=== PATIENT | male | born 1955 | race Caucasian/White ===

== ENCOUNTER 2016-08-13 05:41 | Emergency (ER) | payer MEDICARE, BC ==
[2016-08-13] MEDS: SODIUM CHLORIDE 0.9% FLUSH 10 ML SOL IV PRN ×2 (05:45→06:01)
[2016-08-13] MEDS ORDERED: METOLAZONE 2.5 MG TAB PO ONE (05:53)
[2016-08-13] MEDS ORDERED: FUROSEMIDE 40 MG SOL IV ONE (05:53)
[2016-08-13] MEDS ORDERED: MORPHINE SULFATE 10 MG/ML SOL IV ONE (05:53)
[2016-08-13] MEDS ORDERED: FUROSEMIDE 40 MG SOL ONE (05:55)
[2016-08-13] MEDS ORDERED: MORPHINE SULFATE 10 MG/ML SOL ONE (05:55)
[2016-08-13] MEDS ORDERED: METOLAZONE 2.5 MG TAB ONE (05:57)
[2016-08-13 06:30] VITALS: TEMP 98.7
[2016-08-13 06:30] LABS: BASOPHILS % (AUTO) 1 % (0-3); EOSINOPHILS % (AUTO) 3 % (0-9); HEMATOCRIT 41 % (39-53); MEAN CORPUSCULAR HGB CONC 36.5 gm/dl (32.0-36.0); MEAN CORPUSCULAR VOLUME 89 fL (80-100); MONOCYTES % (AUTO) 11.7 % (0-12); NEUTROPHILS % (AUTO) 67.2 % (37-80)
[2016-08-13 06:33] LABS: CALCIUM 8.9 mg/dl (8.5-10.1); GLOM FILT RATE 32 mL/min (>60); POTASSIUM 3.5 mMol/L (3.5-5.1); SODIUM 136 mMol/L (136-145)
[2016-08-13] MEDS ORDERED: ALBUTEROL/IPRATROPIUM 1 VIAL SOL INH ONE (06:51)
[2016-08-13] MEDS ORDERED: CLONAZEPAM 0.5 MG TAB PO PRN (06:51)
[2016-08-13] MEDS ORDERED: ALBUTEROL/IPRATROPIUM 1 VIAL SOL ONE (06:56)
[2016-08-13] MEDS ORDERED: CLONAZEPAM 0.5 MG TAB ONE (06:58)
[2016-08-13 07:28] VITALS: BP 116/58; PULSE 53; RESP 26; O2SAT 100
== END 2016-08-13 07:15 | disposition home or self-care (01) | DRG 153 ==
LOC: ED 05:41
DX: J06.9 Acute upper respiratory infection, unspecified (principal); I50.9 Heart failure, unspecified; F41.9 Anxiety disorder, unspecified; I25.2 Old myocardial infarction
CPT/HCPCS: 36415; 71010; 80048; 83880; 84484; 85025; 93005; 99285; J1940; J2270; J7620

== ENCOUNTER 2016-08-21 04:48 | Observation (INO) | payer MEDICARE, BC ==
[2016-08-21] MEDS ORDERED: NITROGLYCERIN 0.4 MG TAB SL PRN (05:05)
[2016-08-21] MEDS ORDERED: SODIUM CHLORIDE 0.9% FLUSH 10 ML SOL IV PRN (05:05)
[2016-08-21] MEDS ORDERED: NITROGLYCERIN 0.4 MG TAB SL ONE (05:17)
[2016-08-21 05:31] LABS: BASOPHILS % (AUTO) 1 % (0-3); EOSINOPHILS % (AUTO) 3 % (0-9); HEMATOCRIT 39 % (39-53); MEAN CORPUSCULAR HGB CONC 36.8 gm/dl (32.0-36.0); MEAN CORPUSCULAR VOLUME 87 fL (80-100); MONOCYTES % (AUTO) 8.2 % (0-12); NEUTROPHILS % (AUTO) 46.8 % (37-80)
[2016-08-21] MEDS ORDERED: LORAZEPAM 0.5 MG TAB PO ONE (05:36)
[2016-08-21] MEDS ORDERED: LORAZEPAM 0.5 MG TAB ONE (05:42)
[2016-08-21 05:44] LABS: ALBUMIN 3.2 gm/dl (3.4-5.0); CALCIUM 8.9 mg/dl (8.5-10.1); POTASSIUM 3.5 mMol/L (3.5-5.1)
[2016-08-21] MEDS ORDERED: ZOLPIDEM TARTRATE 5 MG TAB PO PRN (07:17)
[2016-08-21] MEDS ORDERED: NITROGLYCERIN 0.4 MG TAB SL SCH (07:30)
[2016-08-21] MEDS ORDERED: FUROSEMIDE 40 MG TAB PO SCH (09:00)
[2016-08-21] MEDS: LORAZEPAM 0.5 MG TAB PO PRN ×2 (13:21→19:08)
[2016-08-21] MEDS: ISOSORBIDE DINITRATE 10 MG TAB PO SCH ×3 (16:21→21:43)
[2016-08-21] MEDS: CLOBETASOL PROPIONATE TOP SCH (16:21)
[2016-08-21] MEDS: CARVEDILOL 12.5 MG TAB PO SCH ×2 (16:21→21:42)
[2016-08-21] MEDS: EZETIMIBE 10 MG TAB PO SCH (16:22)
[2016-08-21] MEDS: POTASSIUM CHLORIDE 10 MEQ TER PO SCH ×2 (16:22→21:44)
[2016-08-21] MEDS: PIMECROLIMUS TOP SCH (16:22)
[2016-08-21] MEDS: FUROSEMIDE 20 MG TAB PO SCH (16:22)
[2016-08-21] MEDS: SODIUM CHLORIDE 0.9% FLUSH 10 ML SOL IV SCH (17:53)
[2016-08-21] MEDS ORDERED: LATANOPROST 0.005% SOL EACHEYE SCH (21:00)
[2016-08-21] MEDS ORDERED: SIMVASTATIN 20 MG TAB PO SCH (21:00)
[2016-08-21] MEDS ORDERED: FAMOTIDINE 20 MG TAB PO SCH (21:00)
[2016-08-21] MEDS: ALBUTEROL NEB SOL 2.5MG/3ML 1 VIAL SOL NEB PRN (21:44)
[2016-08-22] MEDS: LORAZEPAM 0.5 MG TAB PO PRN ×2 (01:23→09:50)
[2016-08-22] MEDS: SODIUM CHLORIDE 0.9% FLUSH 10 ML SOL IV SCH ×2 (01:25→09:51)
[2016-08-22 07:21] LABS: CALCIUM 9.1 mg/dl (8.5-10.1); POTASSIUM 3.7 mMol/L (3.5-5.1)
[2016-08-22 07:42] VITALS: BP 131/77; RESP 24; TEMP 97.3
[2016-08-22] MEDS ORDERED: VENLAFAXINE HCL 150 MG CER PO SCH (09:00)
[2016-08-22] MEDS: FUROSEMIDE 20 MG TAB PO SCH (09:50)
[2016-08-22] MEDS: EZETIMIBE 10 MG TAB PO SCH (09:50)
[2016-08-22] MEDS: CARVEDILOL 12.5 MG TAB PO SCH (09:50)
[2016-08-22] MEDS: ISOSORBIDE DINITRATE 10 MG TAB PO SCH (09:50)
[2016-08-22] MEDS: POTASSIUM CHLORIDE 10 MEQ TER PO SCH (09:50)
[2016-08-22] MEDS: PIMECROLIMUS TOP SCH (09:51)
[2016-08-22] MEDS: CLOBETASOL PROPIONATE TOP SCH (09:51)
[2016-08-22] MEDS: ALBUTEROL NEB SOL 2.5MG/3ML 1 VIAL SOL NEB PRN (10:06)
[2016-08-22 10:33] VITALS: PULSE 76; O2SAT 95
== END 2016-08-22 11:00 | disposition home or self-care (01) | DRG 204 ==
LOC: ED 04:48 → ACUTE CARE 07:11 → UNDOADMOB 07:11 → ACUTE CARE 07:40
PROVIDERS: ADMIT Family Medicine; ATTEND Family Medicine
DX: R06.00 Dyspnea, unspecified (principal); F41.9 Anxiety disorder, unspecified; R53.81 Other malaise; R06.02 Shortness of breath
CPT/HCPCS: 36415; 71010; 80048; 80053; 82550; 83880; 84484; 85025; 85378; 85610; 85730; 93005; 93012; 94640; 99219; 99285; J7603

== ENCOUNTER 2016-12-07 13:22 | Inpatient (IN) | payer OTHER, MEDICARE, BC ==
[2016-12-07] MEDS ORDERED: CEFAZOLIN SODIUM 1 GM PDS ONE ×2 (14:04→22:40)
[2016-12-07] MEDS ORDERED: HYDROMORPHONE HCL 2 MG/ML SOL IV ONE (14:10)
[2016-12-07] MEDS ORDERED: HYDROMORPHONE 1 MG/ML SYRINGE IV ONE ×2 (14:11→17:30)
[2016-12-07] MEDS ORDERED: HYDROMORPHONE 1 MG/ML SYRINGE ONE ×2 (14:12→17:37)
[2016-12-07 14:20] LABS: BASOPHILS % (AUTO) 1 % (0-3); EOSINOPHILS % (AUTO) 5 % (0-9); HEMATOCRIT 46 % (39-53); MEAN CORPUSCULAR HGB CONC 36.7 gm/dl (32.0-36.0); MEAN CORPUSCULAR VOLUME 87 fL (80-100); MONOCYTES % (AUTO) 9.1 % (0-12); NEUTROPHILS % (AUTO) 59.7 % (37-80)
[2016-12-07] MEDS: SODIUM CHLORIDE 0.9% FLUSH 10 ML SOL IV PRN ×2 (14:20→23:42)
[2016-12-07] MEDS ORDERED: CEFAZOLIN SODIUM 1 GM PDS 2 GM in SODIUM CHLORIDE 0.9% 100 ML 100 ML IV SCH (14:20)
[2016-12-07 14:28] LABS: CALCIUM 9.9 mg/dl (8.5-10.1); POTASSIUM 3.5 mMol/L (3.5-5.1)
[2016-12-07] MEDS ORDERED: BUPIVACAINE HCL 0.5% MPF 10 ML SOL ONE (14:42)
[2016-12-07] MEDS ORDERED: LIDOCAINE HCL 1% MPF SOL ONE (14:42)
[2016-12-07] MEDS ORDERED: DEXAMETHASONE 20 MG/5 ML (4 MG/ML SOL) ONE (14:59)
[2016-12-07] MEDS ORDERED: ONDANSETRON HCL 4 MG/2 ML SOL ONE (14:59)
[2016-12-07] MEDS ORDERED: PHENYLEPHRINE HYDROCHLORIDE 10 MG/ML SOL ONE (14:59)
[2016-12-07] MEDS ORDERED: METOCLOPRAMIDE HYDROCHLORIDE 5 MG/ML SOL ONE (14:59)
[2016-12-07] MEDS ORDERED: EPHEDRINE SULFATE 50 MG/ML SOL ONE ×3 (14:59→16:50)
[2016-12-07] MEDS ORDERED: MIDAZOLAM 2 MG/2 ML SOL ONE ×2 (15:22→16:18)
[2016-12-07] MEDS ORDERED: LACTATED RINGERS 1,000 ML IV ONE (17:06)
[2016-12-07] MEDS ORDERED: PIMECROLIMUS TP PRN (17:15)
[2016-12-07] MEDS ORDERED: LORAZEPAM 0.5 MG TAB PO PRN (17:15)
[2016-12-07] MEDS ORDERED: ALBUTEROL NEB SOL 2.5MG/3ML 1 VIAL SOL INH PRN (17:15)
[2016-12-07] MEDS ORDERED: LACTATED RINGERS 1,000 ML IV SCH (17:15)
[2016-12-07] MEDS ORDERED: CLOBETASOL PROPIONATE TP PRN (17:15)
[2016-12-07] MEDS ORDERED: KETOROLAC TROMETHAMINE 30 MG/ML SOL IV ONE (17:30)
[2016-12-07] MEDS ORDERED: KETOROLAC TROMETHAMINE 30 MG/ML SOL ONE (17:37)
[2016-12-07] MEDS ORDERED: NITROGLYCERIN 0.4 MG TAB SL PRN (17:38)
[2016-12-07] MEDS: SODIUM CHLORIDE 0.9% FLUSH 10 ML SOL IV SCH ×3 (19:05→23:04)
[2016-12-07] MEDS: APAP/OXYCODONE 325/5 TAB PO PRN ×2 (20:06→22:09)
[2016-12-07] MEDS ORDERED: RANITIDINE HCL 150 MG TAB PO SCH (21:00)
[2016-12-07] MEDS ORDERED: SIMVASTATIN 40 MG PO SCH (21:00)
[2016-12-07] MEDS: LATANOPROST 0.005% SOL EACHEYE SCH (22:08)
[2016-12-07] MEDS: ISOSORBIDE DINITRATE 10 MG TAB PO SCH (22:09)
[2016-12-07] MEDS: CARVEDILOL 12.5 MG TAB PO SCH (22:09)
[2016-12-07] MEDS: POTASSIUM CHLORIDE 10 MEQ TER PO SCH (22:09)
[2016-12-07] MEDS: SIMVASTATIN 20 MG TAB PO SCH (22:10)
[2016-12-07] MEDS: ZOLPIDEM TARTRATE 5 MG TAB PO PRN (22:10)
[2016-12-07] MEDS: EZETIMIBE 10 MG TAB PO SCH (22:10)
[2016-12-07] MEDS ORDERED: SODIUM CHLORIDE 0.9% 100 ML 100 ML IV ONE (22:40)
[2016-12-07] MEDS: CEFAZOLIN SODIUM 1 GM PDS 2 GM in SODIUM CHLORIDE 0.9% 100 ML 100 ML IV SCH (23:02)
[2016-12-08] MEDS: SODIUM CHLORIDE 0.9% FLUSH 10 ML SOL IV SCH ×3 (02:04→21:19)
[2016-12-08] MEDS: APAP/OXYCODONE 325/5 TAB PO PRN ×4 (02:56→21:17)
[2016-12-08] MEDS ORDERED: CEFAZOLIN SODIUM 1 GM PDS ONE (05:32)
[2016-12-08] MEDS ORDERED: SODIUM CHLORIDE 0.9% 100 ML 100 ML IV ONE (05:32)
[2016-12-08] MEDS: CEFAZOLIN SODIUM 1 GM PDS 2 GM in SODIUM CHLORIDE 0.9% 100 ML 100 ML IV SCH (06:07)
[2016-12-08] MEDS: FAMOTIDINE 20 MG TAB PO SCH ×2 (06:15→16:53)
[2016-12-08 07:15] LABS: CALCIUM 9.5 mg/dl (8.5-10.1); POTASSIUM 4.2 mMol/L (3.5-5.1)
[2016-12-08] MEDS: FUROSEMIDE 40 MG TAB PO SCH (09:08)
[2016-12-08] MEDS: CHOLECALCIFEROL 1,000 IU TAB PO SCH (09:08)
[2016-12-08] MEDS: CARVEDILOL 12.5 MG TAB PO SCH ×2 (09:11→21:56)
[2016-12-08] MEDS: POTASSIUM CHLORIDE 10 MEQ TER PO SCH ×2 (09:12→21:56)
[2016-12-08] MEDS: ISOSORBIDE DINITRATE 10 MG TAB PO SCH ×2 (09:12→21:56)
[2016-12-08] MEDS: VENLAFAXINE HCL 150 MG CER PO SCH (11:28)
[2016-12-08] MEDS: VENLAFAXINE HYDROCHLORIDE 75 MG CER PO SCH (11:29)
[2016-12-08] MEDS: LATANOPROST 0.005% SOL EACHEYE SCH (21:56)
[2016-12-08] MEDS: EZETIMIBE 10 MG TAB PO SCH (21:57)
[2016-12-08] MEDS: SIMVASTATIN 20 MG TAB PO SCH (21:57)
[2016-12-08] MEDS: ZOLPIDEM TARTRATE 5 MG TAB PO PRN (22:08)
[2016-12-09] MEDS: APAP/OXYCODONE 325/5 TAB PO PRN ×5 (04:15→20:41)
[2016-12-09] MEDS: SODIUM CHLORIDE 0.9% FLUSH 10 ML SOL IV SCH ×3 (04:26→20:39)
[2016-12-09] MEDS: FAMOTIDINE 20 MG TAB PO SCH ×2 (07:35→16:37)
[2016-12-09] MEDS: CARVEDILOL 12.5 MG TAB PO SCH ×2 (08:14→20:38)
[2016-12-09] MEDS: FUROSEMIDE 40 MG TAB PO SCH (08:14)
[2016-12-09] MEDS: CHOLECALCIFEROL 1,000 IU TAB PO SCH (08:15)
[2016-12-09] MEDS: POTASSIUM CHLORIDE 10 MEQ TER PO SCH ×2 (08:15→20:39)
[2016-12-09] MEDS: VENLAFAXINE HCL 150 MG CER PO SCH (08:16)
[2016-12-09] MEDS: ISOSORBIDE DINITRATE 10 MG TAB PO SCH ×2 (08:17→20:39)
[2016-12-09] MEDS: VENLAFAXINE HYDROCHLORIDE 75 MG CER PO SCH (08:17)
[2016-12-09 20:28] VITALS: TEMP 97.4
[2016-12-09] MEDS: LATANOPROST 0.005% SOL EACHEYE SCH (20:39)
[2016-12-09] MEDS: EZETIMIBE 10 MG TAB PO SCH (20:40)
[2016-12-09] MEDS: SIMVASTATIN 20 MG TAB PO SCH (20:40)
[2016-12-10] MEDS: APAP/OXYCODONE 325/5 TAB PO PRN ×3 (02:00→10:27)
[2016-12-10 06:20] VITALS: BP 96/60; PULSE 55; RESP 20; O2SAT 98
[2016-12-10] MEDS: SODIUM CHLORIDE 0.9% FLUSH 10 ML SOL IV SCH (06:32)
[2016-12-10] MEDS: FAMOTIDINE 20 MG TAB PO SCH (06:51)
[2016-12-10] MEDS: VENLAFAXINE HYDROCHLORIDE 75 MG CER PO SCH (09:24)
[2016-12-10] MEDS: VENLAFAXINE HCL 150 MG CER PO SCH (09:25)
[2016-12-10] MEDS: POTASSIUM CHLORIDE 10 MEQ TER PO SCH (09:25)
[2016-12-10] MEDS: CHOLECALCIFEROL 1,000 IU TAB PO SCH (09:26)
[2016-12-10] MEDS: FUROSEMIDE 40 MG TAB PO SCH (09:26)
[2016-12-10] MEDS: CARVEDILOL 12.5 MG TAB PO SCH (09:27)
[2016-12-10] MEDS: ISOSORBIDE DINITRATE 10 MG TAB PO SCH (09:27)
== END 2016-12-10 11:00 | DRG 563 ==
LOC: ED 13:22 → ACUTE CARE 15:18
PROVIDERS: ADMIT Orthopaedic Surgery; ATTEND Orthopaedic Surgery
PROC: F01ZDZZ Gait and/or Balance Assessment (ICD-10-PCS; principal; 2016-12-08)
PROC: F01ZBZZ Bed Mobility Assessment (ICD-10-PCS; 2016-12-08)
PROC: F01ZCZZ Transfer Assessment (ICD-10-PCS; 2016-12-08)
PROC: F01L5ZZ Range of Motion and Joint Integrity Assessment of Musculoskeletal System - Lower Back / Lower Extremity (ICD-10-PCS; 2016-12-08)
PROC: F01L0ZZ Muscle Performance Assessment of Musculoskeletal System - Lower Back / Lower Extremity (ICD-10-PCS; 2016-12-08)
DX: S82.045A Nondisplaced comminuted fracture of left patella, initial encounter for closed fracture (principal); I50.22 Chronic systolic (congestive) heart failure; N18.3 Chronic kidney disease, stage 3 (moderate); W01.0XXA Fall on same level from slipping, tripping and stumbling without subsequent striking against object, initial encounter; Y92.481 Parking lot as the place of occurrence of the external cause
CPT/HCPCS: 36415; 51798; 73560; 73562; 76000; 80048; 83735; 85025; 93005; 96365; 96374; 99284; 99285; J0690; J1100; J1885; J2250; J2405; J2765; J7603; A6232; A6402; A6446; J1170; J2001; L1830

== ENCOUNTER 2017-01-15 13:46 | Outpatient (CLI) | payer MEDICARE, BC ==
[2016-12-10 06:20] VITALS: O2SAT 98
== END 2017-01-15 13:47 | disposition home or self-care (01) | DRG 561 ==
LOC: RAD 13:46
PROVIDERS: ATTEND Orthopaedic Surgery
DX: S82.042D Displaced comminuted fracture of left patella, subsequent encounter for closed fracture with routine healing (principal)
CPT/HCPCS: 73560

== ENCOUNTER 2017-03-21 07:53 | Day surgery (SDC) | payer MEDICARE, BC ==
[2017-03-21] MEDS ORDERED: PROPOFOL 500 MG/50 ML EMU IV ONE (08:09)
[2017-03-21] MEDS ORDERED: LIDOCAINE HCL 1% MPF SOL ONE (08:09)
[2017-03-21 10:34] VITALS: BP 119/75; PULSE 69; RESP 20; TEMP 97.7; O2SAT 100
== END 2017-03-21 10:55 | disposition home or self-care (01) | DRG 392 ==
LOC: SURG 07:53
PROVIDERS: ATTEND Surgery
DX: R10.30 Lower abdominal pain, unspecified (principal); K57.30 Diverticulosis of large intestine without perforation or abscess without bleeding; R19.4 Change in bowel habit; Z86.010 Personal history of colon polyps
CPT/HCPCS: J2001; J2704

== ENCOUNTER 2017-03-22 14:07 | Outpatient (CLI) | payer MEDICARE, BC ==
[2017-03-21 10:34] VITALS: O2SAT 100
== END 2017-03-22 14:08 | disposition home or self-care (01) | DRG 561 ==
LOC: CONVCARE 14:07
PROVIDERS: ATTEND Orthopaedic Surgery
DX: S82.092D Other fracture of left patella, subsequent encounter for closed fracture with routine healing (principal); Z98.890 Other specified postprocedural states
CPT/HCPCS: 73562

== ENCOUNTER 2017-11-02 09:31 | Outpatient (CLI) | payer MEDICARE, BC, OTHER ==
[2017-03-21 10:34] VITALS: O2SAT 100
== END 2017-11-02 09:32 | disposition home or self-care (01) | DRG 566 ==
LOC: CONVCARE 09:31
PROVIDERS: ATTEND Orthopaedic Surgery
DX: M25.362 Other instability, left knee (principal); S82.042S Displaced comminuted fracture of left patella, sequela; Z98.890 Other specified postprocedural states
CPT/HCPCS: 73560; 73565

== ENCOUNTER 2017-12-18 22:44 | Emergency (ER) | payer MEDICARE, OTHER ==
[2017-12-18 22:54] VITALS: TEMP 96.8
[2017-12-18] MEDS ORDERED: FUROSEMIDE 20mg SOL IV ONE (23:12)
[2017-12-18] MEDS ORDERED: FUROSEMIDE 20mg SOL ONE (23:14)
[2017-12-18] MEDS ORDERED: LORAZEPAM 0.5 MG TAB PO ONE (23:15)
[2017-12-18] MEDS ORDERED: SODIUM CHLORIDE 0.9% FLUSH 10 ML SOL IV PRN (23:20)
[2017-12-18 23:29] LABS: BASOPHILS % (AUTO) 1 % (0-3); EOSINOPHILS % (AUTO) 5 % (0-9); HEMATOCRIT 42 % (39-53); HEMOGLOBIN 14.6 gm/dl (13.5-17.7); LYMPHOCYTES % (AUTO) 28.78 % (10-50); MEAN CORPUSCULAR HEMOGLOBIN 32.3 pg (27.0-32.0); MEAN CORPUSCULAR HGB CONC 35.2 gm/dl (32.0-36.0); MEAN CORPUSCULAR VOLUME 92 fL (80-100); MONOCYTES % (AUTO) 9.5 % (0-12)
[2017-12-18 23:42] VITALS: RESP 18
[2017-12-18 23:49] LABS: ALBUMIN 3.4 gm/dl (3.4-5.0); ALKALINE PHOSPHATASE 97 IU/L (46-116); ALT 30 IU/L (14-63); AST 20 IU/L (15-37); BILIRUBIN,TOTAL 0.6 mg/dl (0.2-1.0); BLOOD UREA NITROGEN 22 mg/dl (7-18); CALCIUM 8.6 mg/dl (8.5-10.1); CHLORIDE 104 mMol/L (98-107); CREATININE 2.19 mg/dl (0.80-1.30); GLUCOSE 86 mg/dl (74-106); POTASSIUM 3.6 mMol/L (3.5-5.1); SODIUM 139 mMol/L (136-145); TOTAL PROTEIN 6.6 gm/dl (6.4-8.2); TROP I < 0.017 ng/ml (0.000-0.056)
[2017-12-19 01:00] VITALS: BP 112/77; PULSE 67; O2SAT 92
== END 2017-12-19 00:23 | disposition home or self-care (01) | DRG 293 ==
LOC: ED 22:44
DX: I50.9 Heart failure, unspecified (principal)
CPT/HCPCS: 80053; 83880; 84484; 85025; 96374; 99284; J1940

== ENCOUNTER 2018-03-10 05:26 | Emergency (ER) | payer BC, MEDICARE, OTHER ==
[2018-03-10 06:02] LABS: BASOPHILS % (AUTO) 1 % (0-3); EOSINOPHILS % (AUTO) 5 % (0-9); HEMATOCRIT 41 % (39-53); HEMOGLOBIN 14.1 gm/dl (13.5-17.7); LYMPHOCYTES % (AUTO) 19.6 % (10-50); MEAN CORPUSCULAR HEMOGLOBIN 31.4 pg (27.0-32.0); MEAN CORPUSCULAR HGB CONC 34.1 gm/dl (32.0-36.0); MEAN CORPUSCULAR VOLUME 92 fL (80-100); MONOCYTES % (AUTO) 8.3 % (0-12); NEUTROPHILS % (AUTO) 66.5 % (37-80)
[2018-03-10 06:20] LABS: BLOOD UREA NITROGEN 21 mg/dl (7-18); CALCIUM 9.3 mg/dl (8.5-10.1); CARBON DIOXIDE 27.3 mEq/L (21-32); CHLORIDE 101 mMol/L (98-107); CREATINE KINASE 136 U/L (39-308); CREATININE 2.17 mg/dl (0.80-1.30); GLUCOSE 95 mg/dl (74-106); SODIUM 136 mMol/L (136-145); TROP I < 0.017 ng/ml (0.000-0.056)
[2018-03-10 06:24] VITALS: TEMP 96.8
[2018-03-10 06:45] LABS: ABG PH 7.42 (7.35-7.45)
[2018-03-10] MEDS ORDERED: AZITHROMYCIN 500 MG PDS IV ONE (07:55)
[2018-03-10] MEDS ORDERED: AZITHROMYCIN 500 MG PDS IV SCH (08:00)
[2018-03-10 11:57] VITALS: O2SAT 99
[2018-03-10 11:58] VITALS: BP 109/74; PULSE 67; RESP 18
== END 2018-03-10 09:22 | disposition home or self-care (01) | DRG 204 ==
LOC: ED 05:26
DX: R06.02 Shortness of breath (principal); I50.9 Heart failure, unspecified; R79.89 Other specified abnormal findings of blood chemistry
CPT/HCPCS: 36415; 36600; 71250; 80048; 82550; 82803; 83880; 84484; 85025; 85378; 93005; 96365; 99284; 99285; J0456

== ENCOUNTER 2018-07-10 15:23 | Inpatient (IN) | payer MEDICARE, BC ==
[2018-07-10] MEDS ORDERED: NITROGLYCERIN 0.4 MG TAB SL PRN ×2 (15:25→17:15)
[2018-07-10] MEDS ORDERED: FUROSEMIDE 20mg SOL IV ONE (16:22)
[2018-07-10] MEDS ORDERED: FUROSEMIDE 20mg SOL ONE (16:31)
[2018-07-10] MEDS: SODIUM CHLORIDE 0.9% FLUSH 10 ML SOL IV PRN ×2 (16:36→20:33)
[2018-07-10] MEDS ORDERED: ZOLPIDEM TARTRATE 5 MG TAB PO PRN (17:15)
[2018-07-10] MEDS ORDERED: CLOBETASOL PROPIONATE TP PRN (17:15)
[2018-07-10] MEDS ORDERED: ALBUTEROL NEB SOL 2.5MG/3ML 1 VIAL SOL INH PRN (17:15)
[2018-07-10 18:33] LABS: INR 0.99 (0.86-1.12)
[2018-07-10 20:23] LABS: BLOOD UREA NITROGEN 17 mg/dl (7-18); CALCIUM 9.5 mg/dl (8.5-10.1); CARBON DIOXIDE 29.7 mEq/L (21-32); CHLORIDE 103 mMol/L (98-107); CREATININE 2.11 mg/dl (0.80-1.30); GLUCOSE 112 mg/dl (74-106); POTASSIUM 3.2 mMol/L (3.5-5.1); SODIUM 140 mMol/L (136-145); TROP I < 0.017 ng/ml (0.000-0.056)
[2018-07-10] MEDS: ATORVASTATIN 10 MG TAB PO SCH (20:30)
[2018-07-10] MEDS: HYDRALAZINE HYDROCHLORIDE 10 MG TAB PO SCH (20:31)
[2018-07-10] MEDS: CARVEDILOL 12.5 MG TAB PO SCH (20:31)
[2018-07-10] MEDS: ALLOPURINOL 100 MG TAB PO SCH (20:32)
[2018-07-10] MEDS: ROPINIROLE HCL 0.5 MG TAB PO SCH (20:32)
[2018-07-10] MEDS: FAMOTIDINE 20 MG TAB PO SCH (20:32)
[2018-07-10] MEDS ORDERED: POTASSIUM CHLORIDE 10 MEQ TER PO ONE (20:41)
[2018-07-10] MEDS ORDERED: LORAZEPAM 0.5 MG TAB PO ONE (22:16)
[2018-07-11 07:28] LABS: CALCIUM 9.5 mg/dl (8.5-10.1); CARBON DIOXIDE 26.7 mEq/L (21-32); CREATININE 2.05 mg/dl (0.80-1.30); POTASSIUM 3.5 mMol/L (3.5-5.1)
[2018-07-11] MEDS: CARVEDILOL 12.5 MG TAB PO SCH ×2 (08:45→21:51)
[2018-07-11] MEDS: HYDRALAZINE HYDROCHLORIDE 10 MG TAB PO SCH ×3 (08:45→21:51)
[2018-07-11] MEDS: FUROSEMIDE 20 MG TAB PO SCH (08:45)
[2018-07-11] MEDS: VENLAFAXINE HYDROCHLORIDE 75 MG CER PO SCH (08:46)
[2018-07-11] MEDS: CHOLECALCIFEROL 1,000 IU TAB PO SCH (08:46)
[2018-07-11] MEDS ORDERED: FUROSEMIDE 40 MG SOL IV SCH (21:00)
[2018-07-11] MEDS ORDERED: POTASSIUM CHLORIDE 10 MEQ TER PO SCH (21:45)
[2018-07-11] MEDS: ATORVASTATIN 10 MG TAB PO SCH (21:51)
[2018-07-11] MEDS: ROPINIROLE HCL 0.5 MG TAB PO SCH (21:52)
[2018-07-11] MEDS: FAMOTIDINE 20 MG TAB PO SCH (21:52)
[2018-07-11] MEDS: ALLOPURINOL 100 MG TAB PO SCH (21:53)
[2018-07-12] MEDS ORDERED: LORAZEPAM 0.5 MG TAB PO ONE (00:12)
[2018-07-12 04:37] VITALS: RESP 18; O2SAT 93
[2018-07-12 07:30] LABS: CALCIUM 9.8 mg/dl (8.5-10.1); CARBON DIOXIDE 27.3 mEq/L (21-32); CREATININE 2.08 mg/dl (0.80-1.30); POTASSIUM 3.6 mMol/L (3.5-5.1)
[2018-07-12 08:39] VITALS: BP 101/64; PULSE 57; TEMP 97.7
[2018-07-12] MEDS: FUROSEMIDE 20 MG TAB PO SCH (08:58)
[2018-07-12] MEDS: CHOLECALCIFEROL 1,000 IU TAB PO SCH (08:59)
[2018-07-12] MEDS: CARVEDILOL 12.5 MG TAB PO SCH (08:59)
[2018-07-12] MEDS: VENLAFAXINE HYDROCHLORIDE 75 MG CER PO SCH (08:59)
[2018-07-12] MEDS: HYDRALAZINE HYDROCHLORIDE 10 MG TAB PO SCH (09:00)
== END 2018-07-12 11:30 | disposition home or self-care (01) | DRG 293 ==
LOC: ED 15:23 → ACUTE CARE 16:44 → UNDOADMIN 16:44 → ACUTE CARE 16:50
PROVIDERS: ADMIT Family Medicine; ATTEND Family Medicine
DX: I50.9 Heart failure, unspecified (principal); Z95.0 Presence of cardiac pacemaker; R06.02 Shortness of breath; N18.3 Chronic kidney disease, stage 3 (moderate)
CPT/HCPCS: 36415; 80048; 83880; 84484; 85610; 85730; 93005; 93012; 94762; 96374; 99284; J1940; J7613; A9270-GY

== ENCOUNTER 2018-11-28 09:51 | Emergency (ER) | payer MEDICARE, OTHER ==
[2018-11-28 10:09] VITALS: TEMP 97.5
[2018-11-28 10:14] LABS: BASOPHILS % (AUTO) 1 % (0-3); EOSINOPHILS % (AUTO) 5 % (0-9); HEMATOCRIT 42 % (39-53); HEMOGLOBIN 14.4 gm/dl (13.5-17.7); LYMPHOCYTES % (AUTO) 26.1 % (10-50); MEAN CORPUSCULAR HEMOGLOBIN 30.8 pg (27.0-32.0); MEAN CORPUSCULAR HGB CONC 34.5 gm/dl (32.0-36.0); MEAN CORPUSCULAR VOLUME 89 fL (80-100); MONOCYTES % (AUTO) 8.3 % (0-12); NEUTROPHILS % (AUTO) 59.1 % (37-80)
[2018-11-28 10:31] LABS: ALBUMIN 3.3 gm/dl (3.4-5.0); ALKALINE PHOSPHATASE 140 IU/L (46-116); ALT 19 IU/L (14-63); AST 19 IU/L (15-37); BILIRUBIN,TOTAL 0.4 mg/dl (0.2-1.0); BLOOD UREA NITROGEN 26 mg/dl (7-18); CALCIUM 9.5 mg/dl (8.5-10.1); CHLORIDE 103 mMol/L (98-107); CREATININE 1.97 mg/dl (0.80-1.30); GLUCOSE 109 mg/dl (74-106); SODIUM 136 mMol/L (136-145); TOTAL PROTEIN 6.6 gm/dl (6.4-8.2); TROP I < 0.017 ng/ml (0.000-0.056)
[2018-11-28 11:21] VITALS: BP 113/73; PULSE 68; RESP 22; O2SAT 94
== END 2018-11-28 11:20 | disposition home or self-care (01) | DRG 204 ==
LOC: ED 09:51
DX: R06.02 Shortness of breath (principal)
CPT/HCPCS: 36415; 71045; 80053; 83880; 84484; 85025; 93005; 99283; 99284

== ENCOUNTER 2018-12-17 09:34 | Outpatient (CLI) | payer MEDICARE, OTHER ==
[2018-11-28 11:21] VITALS: O2SAT 94
[2018-12-17 10:01] LABS: CALCIUM 9.7 mg/dl (8.5-10.1); CARBON DIOXIDE 29.5 mEq/L (21-32); CREATININE 2.23 mg/dl (0.80-1.30)
== END 2018-12-17 09:35 | disposition home or self-care (01) | DRG 293 ==
LOC: CONVCARE 09:34
PROVIDERS: ATTEND Internal Medicine Cardiovascular Disease
DX: I50.9 Heart failure, unspecified (principal); N18.9 Chronic kidney disease, unspecified; G47.33 Obstructive sleep apnea (adult) (pediatric); E78.5 Hyperlipidemia, unspecified; I25.2 Old myocardial infarction; I11.0 Hypertensive heart disease with heart failure
CPT/HCPCS: 36415; 80048

== ENCOUNTER 2019-01-19 21:23 | Observation (INO) | payer MEDICARE, OTHER ==
[2019-01-19] MEDS ORDERED: SODIUM CHLORIDE 0.9% FLUSH 10 ML SOL IV PRN (21:26)
[2019-01-19] MEDS ORDERED: ASPIRIN 81 MG CHEWABLE CTB PO STA (21:26)
[2019-01-19] MEDS ORDERED: ASPIRIN 81 MG CHEWABLE CTB ONE (21:32)
[2019-01-19] MEDS ORDERED: NITROGLYCERIN 0.4 MG TAB SL ONE (21:33)
[2019-01-19] MEDS: NITROGLYCERIN 0.4 MG TAB SL PRN ×3 (21:38→21:53)
[2019-01-19 21:42] LABS: BASOPHILS % (AUTO) 1 % (0-3); EOSINOPHILS % (AUTO) 6 % (0-9); HEMATOCRIT 44 % (39-53); HEMOGLOBIN 14.8 gm/dl (13.5-17.7); LYMPHOCYTES % (AUTO) 28.1 % (10-50); MEAN CORPUSCULAR HEMOGLOBIN 30.6 pg (27.0-32.0); MEAN CORPUSCULAR HGB CONC 33.3 gm/dl (32.0-36.0); MEAN CORPUSCULAR VOLUME 92 fL (80-100); MONOCYTES % (AUTO) 12.3 % (0-12); NEUTROPHILS % (AUTO) 52.6 % (37-80)
[2019-01-19 21:52] LABS: INR 1.05 (0.87-1.13)
[2019-01-19 21:57] LABS: BLOOD UREA NITROGEN 30 mg/dl (7-18); CALCIUM 9.3 mg/dl (8.5-10.1); CARBON DIOXIDE 29.5 mEq/L (21-32); CHLORIDE 100 mMol/L (98-107); CREATINE KINASE 79 U/L (39-308); CREATININE 2.26 mg/dl (0.80-1.30); GLUCOSE 109 mg/dl (74-106); TROP I < 0.017 ng/ml (0.000-0.056)
[2019-01-19] MEDS ORDERED: ZOLPIDEM TARTRATE 5 MG TAB PO PRN (22:20)
[2019-01-19] MEDS ORDERED: ALBUTEROL NEB SOL 2.5MG/3ML 1 VIAL SOL INH PRN (22:20)
[2019-01-19] MEDS ORDERED: NITROGLYCERIN 0.4 MG TAB SL PRN (22:20)
[2019-01-19] MEDS ORDERED: MORPHINE SULFATE 10 MG/ML SOL IV PRN (22:22)
[2019-01-19 22:44] VITALS: RESP 18
[2019-01-20] MEDS ORDERED: ISOSORBIDE MONONITRATE 30 MG TER PO SCH (09:00)
[2019-01-20] MEDS ORDERED: TORSEMIDE 10 MG TABLET PO SCH (09:00)
[2019-01-20] MEDS ORDERED: CARVEDILOL 12.5 MG TAB PO SCH (09:00)
[2019-01-20] MEDS ORDERED: VENLAFAXINE HCL 150 MG CER PO SCH (09:00)
[2019-01-20] MEDS ORDERED: HYDRALAZINE HYDROCHLORIDE 10 MG TAB PO SCH (09:00)
[2019-01-20] MEDS ORDERED: TORSEMIDE 20 MG TAB PO SCH (09:00)
[2019-01-20] MEDS ORDERED: VENLAFAXINE ER 37.5 MG CAPSULE PO SCH (09:00)
[2019-01-20] MEDS ORDERED: ROPINIROLE HCL 0.25 MG TABLET PO SCH (09:00)
[2019-01-20] MEDS ORDERED: POTASSIUM CHLORIDE 10 MEQ TER PO SCH (09:00)
[2019-01-20] MEDS ORDERED: CHOLECALCIFEROL 1,000 IU (25 MCG) TAB PO SCH (09:00)
[2019-01-20 09:49] VITALS: BP 109/65; PULSE 72; TEMP 97.5; O2SAT 98
[2019-01-20] MEDS ORDERED: PNEUMOC 13-VAL CONJ-DIP CRM/PF 0.5 ML SYRINGE IM ONE (10:09)
[2019-01-20] MEDS ORDERED: ALLOPURINOL 100 MG TAB PO SCH (21:00)
[2019-01-20] MEDS ORDERED: ATORVASTATIN 10 MG TAB PO SCH (21:00)
[2019-01-20] MEDS ORDERED: FAMOTIDINE 20 MG TAB PO SCH (21:00)
[2019-01-20] MEDS ORDERED: ENOXAPARIN 40 MG SOL SC SCH (23:45)
== END 2019-01-20 11:55 | disposition home or self-care (01) | DRG 313 ==
LOC: ED 21:23 → ACUTE CARE 22:14
PROVIDERS: ADMIT Family Medicine; ATTEND Family Medicine
DX: R07.89 Other chest pain (principal); I50.9 Heart failure, unspecified; N18.9 Chronic kidney disease, unspecified
CPT/HCPCS: 0296T; 36415; 71045; 80048; 82550; 83880; 84484; 85025; 85379; 85610; 85730; 90670; 93005; 93012; 99219; 99285; J1650; J2270; J7613; A9270-GY; G0008